=== PATIENT | male | born 1975 | race African-American/Black ===

== ENCOUNTER → 2023-07-09 | Outpatient (CLI) | payer OTHER | LOC: M PLAIMG 13:17 | PROVIDERS: ATTEND Physician Assistant | DX: R10.31 Right lower quadrant pain (principal); N20.0 Calculus of kidney; K57.90 Diverticulosis of intestine, part unspecified, without perforation or abscess without bleeding ==

== ENCOUNTER → 2025-04-20 | Outpatient (CLI) | payer OTHER | LOC: M RAD 16:33 | PROVIDERS: ATTEND Urology | DX: N20.0 Calculus of kidney (principal) ==